=== PATIENT | male | born 1955 | race Caucasian/White ===

== ENCOUNTER 2025-02-10 10:25 | Outpatient (CLI) | payer OTHER | END 2025-02-10 10:26 | disposition home or self-care (01) | LOC: BICCT 10:25 | PROVIDERS: ATTEND Registered Nurse | DX: Z12.2 Encounter for screening for malignant neoplasm of respiratory organs (principal); D32.0 Benign neoplasm of cerebral meninges; Z87.891 Personal history of nicotine dependence | CPT/HCPCS: 70450; 71271 ==

== ENCOUNTER 2025-02-18 12:53 | Outpatient (CLI) | payer OTHER | END 2025-02-18 12:54 | disposition home or self-care (01) | LOC: SCSMRI 12:53 | PROVIDERS: ATTEND Registered Nurse | DX: D32.0 Benign neoplasm of cerebral meninges (principal); G93.9 Disorder of brain, unspecified | CPT/HCPCS: 70553; 76376 ==